=== PATIENT | female | born 1970 | race Two or more races ===

== ENCOUNTER 2024-02-27 16:19 | Outpatient (CLI) | payer MEDICAID | END 2024-02-27 23:59 | disposition home or self-care (01) | LOC: LAB 16:19 | PROVIDERS: ATTEND Student in an Organized Health Care Education/Training Program | DX: S93.402A Sprain of unspecified ligament of left ankle, initial encounter (principal); X58.XXXA Exposure to other specified factors, initial encounter; Y93.89 Activity, other specified; Y92.89 Other specified places as the place of occurrence of the external cause; Y99.8 Other external cause status | CPT/HCPCS: 73610 ==